=== PATIENT | female | born 1985 | race African-American/Black ===

== ENCOUNTER 2016-08-22 05:35 | Outpatient (CLI) | payer OTHER | END 2016-08-22 07:16 | disposition home or self-care (01) | LOC: FBPOP 05:35 | PROVIDERS: ATTEND Obstetrics & Gynecology | DX: O62.2 Other uterine inertia (principal); Z3A.39 39 weeks gestation of pregnancy | CPT/HCPCS: 59025; G0463; 99213 ==

== ENCOUNTER 2016-08-24 02:20 | Inpatient (IN) | payer OTHER ==
[2016-08-24] MEDS: LACTATED RINGERS 1,000 ML IV SCH ×3 (02:35→12:19)
[2016-08-24] MEDS ORDERED: OXYTOCIN 10 UNIT/ML 1 ML VIAL IM PRN (03:58)
[2016-08-24] MEDS ORDERED: METHYLERGONOVINE 0.2 MG/ML 1 ML AMP IM PRN (03:58)
[2016-08-24] MEDS ORDERED: TERBUTALINE 1 MG/ML VIAL SQ PRN (03:58)
[2016-08-24] MEDS ORDERED: CARBOPROST TROMETHAMINE 250 MCG/ML 1 ML AMP IM PRN (03:58)
[2016-08-24] MEDS ORDERED: LIDOCAINE 1% (PF) 10 MG/ML (30 ML SDV) SQ PRN (03:58)
--- NOTE | 2016-08-24 04:08 | P.HPOB ---
History of Present Illness H&P Date: 08/24/16 Chief Complaint: Contractions. This patient is a pleasant 31-year-old 7 para 3 female estimated date of confinement 08/28/2016 estimated gestational age 39 and 3 sevenths weeks gestation who presents to labor and delivery with complaints of contractions. Patient is not felt to be in labor, however wall being monitored she was noted to have a deceleration to the 80s and 90s for a prolonged period of time. Patient's care is per Dr. Cesar and appears to be uncomplicated. Review of Systems Constitutional: Denies chills, Denies fever Ears, nose, mouth and throat: Denies headache, Denies sore throat Cardiovascular: Denies chest pain, Denies shortness of breath Respiratory: Denies cough Gastrointestinal: Reports heartburn Genitourinary: Reports Menstruation: Reports amenorrhea Musculoskeletal: Denies myalgias Integumentary: Denies pruritus, Denies rash Neurological: Denies numbness, Denies weakness Psychiatric: Denies anxiety, Denies depression Endocrine: Denies fatigue, Denies weight change Past Medical History Additional Past Medical History / Comment(s): migraine History of Any Multi-Drug Resistant Organisms: None Reported Past Surgical History: Tonsillectomy Past Psychological History: No Psychological Hx Reported Smoking Status: Former smoker Past Alcohol Use History: None Reported Past Drug Use History: None Reported Medications and Allergies Allergies Allergy/AdvReac Type Severity Reaction Status Date / Time cephalexin [From Keflex] Allergy Severe Anaphylaxis Verified 08/24/16 02:39 Penicillins Allergy Severe Anaphylaxis Verified 08/24/16 02:39 Exam - Vital Signs Vital signs: Intake and Output 08/23/16 08/23/16 08/24/16 14:59 22:59 06:59 Other: Weight 102.058 kg Patient Weight 08/24/16 06:59 Weight 102.058 kg - OBG Physical Exam Abdomen: bowel sounds normal, no diffuse tenderness, no bruit present, no guarding noted, no hepatomegaly, no splenomegaly, no mass Vulva: both: normal Vagina: normal moisture, no discharge Cervix: Cervix is 3 cm dilated and thick. Uterus: enlarged (Fundal height is consistent with a term .) Results blood work shows she is A positive, rubella nonimmune, RPR is nonreactive, hepatitis B is negative, group B strep was negative Assessment and Plan (1) Third trimester Narrative/Plan: This is a pleasant 31-year-old 7 para 3 female 39-3/7 weeks gestation who presented to labor and delivery with complaints of contractions. Patient has had some slight cervical change from her previous exam but had a spontaneous deceleration and therefore is being admitted for delivery. Did proceed with AROM for clear fluid and a scalp electrode is placed. heart tones are reassuring at this time. Status: Acute
[2016-08-24 08:13] VITALS: BMI 35.2
[2016-08-24] MEDS ORDERED: OXYTOCIN 30 UNITS/500 ML NS 30 UNIT in SALINE 1 500ML.BAG IV SCH ×2 (08:15→16:15)
[2016-08-24 08:56] LABS: Basophils # (A) 0.1 k/uL (0-0.2); Basophils % (A) 1 %; CH 29.1; CHCM 32.8; Eosinophils # (A) 0.3 k/uL (0-0.7); Eosinophils % (A) 2 %; HCT 30.4 % (34.0-46.0); HDW 2.76; HGB 10.2 gm/dL (11.4-16.0); Luc # (Auto) 0.41; Luc % (Auto) 4; Lymphocytes # (A) 1.9 k/uL (1.0-4.8); Lymphocytes % (A) 16 %; MCH 29.8 pg (25.0-35.0); MCHC 33.5 g/dL (31.0-37.0); Mean Platelet Volume 7.6; Monocytes # (A) 0.5 k/uL (0-1.0); Monocytes % (A) 5 %; Neutrophils # (A) 8.4 k/uL (1.3-7.7); Neutrophils % (A) 73 %; RBC 3.42 m/uL (3.80-5.40); RDW 13.9 % (11.5-15.5); WBC 11.5 k/uL (3.8-10.6); WBC (Perox) 12.35
[2016-08-24] MEDS ORDERED: fentaNYL (PF) 50 MCG/ML 5 ML AMP ONE (13:44)
[2016-08-24] MEDS ORDERED: SODIUM CHLORIDE 0.9% 100 ML BAG ONE (13:44)
[2016-08-24] MEDS ORDERED: BUPIVACAINE (PF) 0.25% 30 ML VIAL ONE (13:44)
[2016-08-24] MEDS ORDERED: diphenhydrAMINE 50 MG/ML 1 ML VIAL IVP PRN ×2 (16:12)
[2016-08-24] MEDS ORDERED: ZOLPIDEM 5 MG TAB PO PRN (16:12)
[2016-08-24] MEDS ORDERED: SIMETHICONE 80 MG CHEWABLE PO PRN (16:12)
[2016-08-24] MEDS ORDERED: diphenhydrAMINE 50 MG CAP PO PRN (16:12)
[2016-08-24] MEDS ORDERED: MEASLES-MUMPS-RUBELLA VACC/PF 12,500 UNIT/0.5 ML VIAL SQ ONE (16:12)
[2016-08-24] MEDS ORDERED: WITCH HAZEL 1 EACH MED..PAD TOPICAL PRN (16:12)
[2016-08-24] MEDS ORDERED: BENZOCAINE/MENTHOL SPRAY 1 GM/SPRAY AEROSOL TOPICAL PRN (16:12)
[2016-08-24] MEDS ORDERED: LANOLIN CREAM 5 GM TUBE TOPICAL PRN (16:12)
[2016-08-24] MEDS ORDERED: Acetaminophen-Codeine 300-30mg TAB PO PRN ×2 (16:12)
[2016-08-24] MEDS ORDERED: ACETAMINOPHEN TAB 325 MG TAB PO PRN (16:12)
[2016-08-24] MEDS ORDERED: diphenhydrAMINE 25 MG CAP PO PRN (16:12)
[2016-08-24] MEDS ORDERED: HYDROCORTISONE 2.5% RECTAL CREAM 30 GM TUBE RECTAL PRN (16:12)
[2016-08-24] MEDS ORDERED: DIPH,PERTUS(ACELL)TETVAC-LF 0.5 ML VIAL IM ONE (16:14)
[2016-08-24] MEDS ORDERED: BUPIVACAINE (PF) 0.25% 25 ML, fentaNYL (PF) 200 MCG in SODIUM CHLORIDE 0.9% 71 ML EPIDURAL ONE (17:09)
[2016-08-24 18:15] VITALS: RESP 16
--- NOTE | 2016-08-24 19:37 | P.PROBDLV ---
Vaginal Delivery Note - . Vaginal Delivery Note: Patient progressed complete and pushing with spontaneous vaginal delivery of a viable female over an intact perineum. Falling deliver the head mouth nares were bulb suctioned a nuchal cord 1 was reduced without difficulty and interim posterior shoulders were delivered with gentle downward upper traction. Once baby was fully delivered mouth and nares were bulb suctioned and baby was placed on mother's abdomen where the umbilical cord was clamped and cut in usual fashion an nursery personnel was present to assume care. Placenta was then delivered intact and Pitocin was added to the IV. scores and weight are not on the chart at this time but both mother and baby appear stable.
[2016-08-25] MEDS: SENNOSIDES-DOCUSATE SODIUM 1 EACH TAB PO SCH ×2 (00:34→08:12)
[2016-08-25] MEDS: IBUPROFEN 600 MG TAB PO PRN ×2 (04:22→12:44)
--- NOTE | 2016-08-25 07:45 | P.DS ---
Providers Date of admission: 08/24/16 02:47 Expected date of discharge: 08/25/16 Attending physician: Keith Salvador Primary care physician: Keith Salvador Hospital Course: Gina is doing very well day 1. She is ambulating, voiding and she is tolerating her diet. She voices no complaint. Vital signs are stable and afebrile. Heart regular, lungs clear, tries without pain. Abdomen soft uterus is firm lochia is reported be light. Assessment day 1. Plan discharged home follow up with me in 6 weeks. Discharge instructions were thoroughly reviewed and discharge she is provided. She requests nothing to go home with for pain and is otherwise stable for discharge at this time. Patient Condition at Discharge: Good Plan - Discharge Summary Discharge Medication List Hxe-Fnss-Jlbez Acid [-U Capsule] 1 each PO DAILY #100 cap 01/04 [Rx] Follow up Appointment(s)/Referral(s): Keith Salvador DO [Primary Care Provider] - 1 Week Activity/Diet/Wound Care/Special Instructions: discharge instructions reviewed Discharge Disposition: HOME SELF-CARE
[2016-08-25 08:40] LABS: Basophils # (A) 0.1 k/uL (0-0.2); Basophils % (A) 1 %; CH 29.5; CHCM 32.8; Eosinophils # (A) 0.3 k/uL (0-0.7); Eosinophils % (A) 3 %; HCT 32.9 % (34.0-46.0); HDW 2.69; HGB 10.5 gm/dL (11.4-16.0); Luc % (Auto) 2; Lymphocytes # (A) 2.2 k/uL (1.0-4.8); Lymphocytes % (A) 19 %; MCH 28.8 pg (25.0-35.0); MCHC 31.9 g/dL (31.0-37.0); MCV 90.5 fL (80.0-100.0); Mean Platelet Volume 8.3; Monocytes # (A) 0.8 k/uL (0-1.0); Monocytes % (A) 7 %; Neutrophils # (A) 7.9 k/uL (1.3-7.7); Neutrophils % (A) 69 %; RBC 3.63 m/uL (3.80-5.40); WBC 11.4 k/uL (3.8-10.6); WBC (Perox) 12.43
[2016-08-25 15:21] VITALS: BP 108/73; PULSE 62; TEMP 98.3
== END 2016-08-25 16:30 | disposition home or self-care (01) | DRG 775 ==
LOC: FBPOP 02:20 → 4FBP 02:47
PROVIDERS: ADMIT Obstetrics & Gynecology; ATTEND Obstetrics & Gynecology
PROC: 10E0XZZ Delivery of Products of Conception, External Approach (ICD-10-PCS; principal; 2016-08-24)
PROC: 00HU33Z Insertion of Infusion Device into Spinal Canal, Percutaneous Approach (ICD-10-PCS; 2016-08-24)
PROC: 3E0R3CZ (ICD-10-PCS; 2016-08-24)
PROC: 10907ZC Drainage of Amniotic Fluid, Therapeutic from Products of Conception, Via Natural or Artificial Opening (ICD-10-PCS; 2016-08-24)
PROC: 3E033VJ Introduction of Other Hormone into Peripheral Vein, Percutaneous Approach (ICD-10-PCS; 2016-08-24)
PROC: 3E0134Z Introduction of Serum, Toxoid and Vaccine into Subcutaneous Tissue, Percutaneous Approach (ICD-10-PCS; 2016-08-24)
PROC: 3E0234Z Introduction of Serum, Toxoid and Vaccine into Muscle, Percutaneous Approach (ICD-10-PCS; 2016-08-24)
DX: O69.81X0 Labor and delivery complicated by cord around neck, without compression, not applicable or unspecified (principal); G43.909 Migraine, unspecified, not intractable, without status migrainosus; Z87.891 Personal history of nicotine dependence; Z37.0 Single live birth; Z3A.39 39 weeks gestation of pregnancy; Z79.899 Other long term (current) drug therapy; Z23 Encounter for immunization
CPT/HCPCS: 85025; 88307; 90707; 99213

== ENCOUNTER 2018-03-05 01:00 | Inpatient (IN) | payer OTHER ==
[2018-03-05] MEDS ORDERED: OXYTOCIN 10 UNIT/ML 1 ML VIAL IM PRN (04:44)
[2018-03-05] MEDS ORDERED: TERBUTALINE 1 MG/ML VIAL SQ PRN (04:44)
[2018-03-05] MEDS ORDERED: LIDOCAINE 1% (PF) 10 MG/ML (30 ML SDV) SQ PRN (04:44)
[2018-03-05] MEDS ORDERED: METHYLERGONOVINE 0.2 MG/ML 1 ML AMP IM PRN (04:44)
[2018-03-05] MEDS ORDERED: CARBOPROST TROMETHAMINE 250 MCG/ML 1 ML AMP IM PRN (04:44)
[2018-03-05] MEDS ORDERED: OXYTOCIN 20 UNITS/1000 ML NS 1,000 ML IV SCH ×2 (04:45→07:49)
[2018-03-05] MEDS ORDERED: BUTORPHANOL 1 MG/ML 1 ML VIAL IV PRN (04:47)
[2018-03-05] MEDS ORDERED: LACTATED RINGERS 1,000 ML IV SCH (05:45)
[2018-03-05 05:58] LABS: Basophils # (A) 0.1 k/uL (0-0.2); Basophils % (A) 1 %; Eosinophils # (A) 0.3 k/uL (0-0.7); Eosinophils % (A) 2 %; HCT 34.1 % (34.0-46.0); HGB 11.6 gm/dL (11.4-16.0); Lymphocytes # (A) 2.6 k/uL (1.0-4.8); Lymphocytes % (A) 20 %; MCH 29.9 pg (25.0-35.0); MCHC 33.9 g/dL (31.0-37.0); MCV 88.3 fL (80.0-100.0); Mean Platelet Volume 7.5; Monocytes # (A) 0.7 k/uL (0-1.0); Monocytes % (A) 5 %; Neutrophils # (A) 9.3 k/uL (1.3-7.7); Neutrophils % (A) 70 %; Platelet Count 261 k/uL (150-450); RBC 3.86 m/uL (3.80-5.40); RDW 14.2 % (11.5-15.5); WBC 13.1 k/uL (3.8-10.6)
--- NOTE | 2018-03-05 07:27 | P.HPOB ---
History of Present Illness H&P Date: 03/05/18 Chief Complaint: Contractions This is a 32-year-old female 8 para 4 at 39-2/7 weeks with an estimated date of confinement of 03/10/2018, who presents to labor and delivery with complaints of contractions that been irregular since yesterday but due to her history of fast labor she decided to come in. She is scheduled for induction this morning. Upon arrival to triage her contractions are approximately every 10 minutes and she is noted to be 5 cm and very high. She is not that uncomfortable on admission. care is with Dr. Salvador. labs: Hepatitis B surface antigen-negative RPR-nonreactive Rubella-immune Blood type-A+ Antibody screen-negative HIV-nonreactive Hemoglobin-12 Toxoplasma screen-negative One hour Glucola-96 Group B streptococcus-negative Obstetrical history: . History of 4 vaginal deliveries. History of 3 miscarriages. Review of Systems Constitutional: Denies chills, Denies fever Eyes: denies blurred vision, denies pain Ears, nose, mouth and throat: Denies headache, Denies sore throat Cardiovascular: Denies chest pain, Denies shortness of breath Respiratory: Denies cough Gastrointestinal: Reports abdominal pain Genitourinary: Reports pelvic pain, Reports Musculoskeletal: Reports low back pain Integumentary: Denies pruritus, Denies rash Neurological: Denies numbness, Denies weakness Psychiatric: Denies anxiety, Denies depression Past Medical History Additional Past Medical History / Comment(s): migraine History of Any Multi-Drug Resistant Organisms: None Reported Past Surgical History: Tonsillectomy Past Anesthesia/Blood Transfusion Reactions: No Reported Reaction Past Psychological History: No Psychological Hx Reported Smoking Status: Former smoker Past Alcohol Use History: None Reported Past Drug Use History: None Reported - Past Family History Father Family Medical History: No Reported History Medications and Allergies Home Medications Medication Instructions Recorded Confirmed Type Tlm-Rbws-Cafxd Acid 1 each PO DAILY #100 cap 01/05/16 03/05/18 Rx [-U Capsule (formulary)] Allergies Allergy/AdvReac Type Severity Reaction Status Date / Time cephalexin [From Keflex] Allergy Severe Anaphylaxis Verified 03/05/18 05:32 Penicillins Allergy Severe Anaphylaxis Verified 03/05/18 05:32 ciprofloxacin [From Cipro] Allergy Anaphylaxis Verified 03/05/18 05:32 Exam Osteopathic Statement: *. No significant issues noted on an osteopathic structural exam other than those noted in the History and Physical/Consult. Intake and Output 03/04/18 03/05/18 03/05/18 22:59 06:59 14:59 Other: # Voids 2 Weight 105.233 kg HEENT: Within normal limits Heart: Regular rate and rhythm Lungs: Clear to auscultation bilaterally Abdomen: Cervix: Initially in triage is 5 cm/thick/high. heart tones: Reactive Contractions: Approximately every 10 minutes Extremities: Negative Homans Results Result Diagrams: 03/05/18 03:40 Abnormal Lab Results - Last 24 Hours (Table) 03/05/18 Range/Units 03:40 WBC 13.1 H (3.8-10.6) k/uL Neutrophils # 9.3 H (1.3-7.7) k/uL Assessment and Plan (1) 39 weeks gestation of Current Visit: Yes Status: Acute Code(s): Z3A.39 - 39 WEEKS GESTATION OF SNOMED Code(s): 92924708 Plan: Admission for early labor. Expectant management.
--- NOTE | 2018-03-05 07:30 | P.PROBDLV ---
Vaginal Delivery Note - . Vaginal Delivery Note: I was called with a report that the patient is now 9 cm and still saul irregularly. Upon my arrival, she is noted to be 9-1/2 cm with a bulging bag. Artificial rupture membranes is carried out with clear fluid noted. Shortly after rupture of membranes, she felt the urge to push. She pushed for a couple pushes and infant's head came to a crown. With one further push, the infant delivered across the perineum followed by the anterior shoulder. Nuchal cord times one was reduced around the body with delivery area and infant was placed on mother's abdomen. Cord was clamped and cut and nose and mouth were bulb suctioned. Risk I was noted immediately. A viable female was noted with scores of 8 at 1 minute and 9 at 5 minutes. Infant weight is pending at this time. Placenta delivered shortly thereafter, intact, with a three-vessel cord. Uterus contracted fairly well after oxytocin was given and uterine massage was carried out. A gloved hand was placed and there was a small amount of membrane was separately pulled out and uterus firmed up well. Inspection of the perineum revealed a few small abrasions but no active bleeding. Estimated blood loss is approximately 150 mL's. Both mother and infant are in stable condition.
[2018-03-05] MEDS ORDERED: diphenhydrAMINE 25 MG CAP PO PRN (07:49)
[2018-03-05] MEDS ORDERED: SIMETHICONE 80 MG CHEWABLE PO PRN (07:49)
[2018-03-05] MEDS ORDERED: BENZOCAINE/MENTHOL SPRAY 1 GM/SPRAY AEROSOL TOPICAL PRN (07:49)
[2018-03-05] MEDS ORDERED: diphenhydrAMINE 50 MG CAP PO PRN (07:49)
[2018-03-05] MEDS ORDERED: diphenhydrAMINE 50 MG/ML 1 ML VIAL IVP PRN ×2 (07:49)
[2018-03-05] MEDS ORDERED: WITCH HAZEL 1 EACH MED..PAD TOPICAL PRN (07:49)
[2018-03-05] MEDS ORDERED: HYDROCORTISONE 2.5% RECTAL CREAM 30 GM TUBE RECTAL PRN (07:49)
[2018-03-05] MEDS ORDERED: LANOLIN CREAM 5 GM TUBE TOPICAL PRN (07:49)
[2018-03-05] MEDS ORDERED: ACETAMINOPHEN TAB 325 MG TAB PO PRN (07:49)
[2018-03-05] MEDS ORDERED: ZOLPIDEM 5 MG TAB PO PRN (07:49)
[2018-03-05] MEDS: SENNOSIDES-DOCUSATE SODIUM 1 EACH TAB PO SCH ×2 (08:29→20:20)
[2018-03-05] MEDS: IBUPROFEN 600 MG TAB PO PRN ×2 (08:51→19:17)
[2018-03-05 20:18] VITALS: RESP 16
[2018-03-06 05:41] LABS: Basophils % (A) 0 %; Eosinophils # (A) 0.4 k/uL (0-0.7); Eosinophils % (A) 3 %; HCT 31.3 % (34.0-46.0); HGB 10.3 gm/dL (11.4-16.0); Lymphocytes # (A) 2.9 k/uL (1.0-4.8); Lymphocytes % (A) 22 %; MCH 29.1 pg (25.0-35.0); MCHC 32.9 g/dL (31.0-37.0); MCV 88.6 fL (80.0-100.0); Mean Platelet Volume 7.5; Monocytes # (A) 0.7 k/uL (0-1.0); Monocytes % (A) 6 %; Neutrophils % (A) 68 %; Platelet Count 255 k/uL (150-450); RBC 3.53 m/uL (3.80-5.40); RDW 14.1 % (11.5-15.5); WBC 13.3 k/uL (3.8-10.6)
[2018-03-06 08:34] VITALS: BP 107/68; PULSE 69; TEMP 98
[2018-03-06] MEDS: SENNOSIDES-DOCUSATE SODIUM 1 EACH TAB PO SCH (10:27)
--- NOTE | 2018-03-06 11:07 | P.DS ---
Providers Date of admission: 03/05/18 01:00 Expected date of discharge: 03/06/18 Attending physician: Keith Salvador Primary care physician: Keith Salvador [facility] Hospital Course: Gina is doing very well day 1. She is ambulating, voiding, and she is tolerating her diet. She voices no complaints. Vital signs are stable and afebrile. Heart regular, lungs clear, extremities without pain. Abdomen soft uterus is firm below the umbilicus and lochia is reported be light. Assessment post day 1. Plan discharged home follow up with me in 6 weeks. Discharge instructions thoroughly reviewed. All questions are answered for her prior to her discharge. Patient Condition at Discharge: Good Plan - Discharge Summary New Discharge Prescriptions: No Action Asu-Zigv-Gbmyi Acid [-U Capsule (formulary)] 1 each PO DAILY #100 cap Discharge Medication List Gct-Knys-Qjxaa Acid [-U Capsule (formulary)] 1 each PO DAILY # 100 cap 01/05/16 [Rx] Follow up Appointment(s)/Referral(s): Keith Salvador DO [Primary Care Provider] - 6 Weeks Activity/Diet/Wound Care/Special Instructions: No heavy lifting, limit stairs and driving and pelvic rest. If any high temperatures, heavy bleeding, or severe pain call my office Discharge Disposition: HOME SELF-CARE
== END 2018-03-06 11:15 | disposition home or self-care (01) | DRG 767 ==
LOC: 4FBP 01:00
PROVIDERS: ADMIT Obstetrics & Gynecology; ATTEND Obstetrics & Gynecology
PROC: 10D17Z9 Manual Extraction of Products of Conception, Retained, Via Natural or Artificial Opening (ICD-10-PCS; principal; 2018-03-05)
PROC: 10907ZC Drainage of Amniotic Fluid, Therapeutic from Products of Conception, Via Natural or Artificial Opening (ICD-10-PCS; principal; 2018-03-05)
PROC: 10E0XZZ Delivery of Products of Conception, External Approach (ICD-10-PCS; principal; 2018-03-05)
DX: O69.81X0 Labor and delivery complicated by cord around neck, without compression, not applicable or unspecified (principal); Z37.0 Single live birth; Z3A.39 39 weeks gestation of pregnancy; Z87.891 Personal history of nicotine dependence; O73.1 Retained portions of placenta and membranes, without hemorrhage
CPT/HCPCS: 85025

== ENCOUNTER 2018-05-15 15:16 | Emergency (ER) | payer OTHER ==
[2018-05-15 15:24] VITALS: RESP 18
[2018-05-15] MEDS ORDERED: diphenhydrAMINE 50 MG/ML 1 ML VIAL IVP STA (15:30)
[2018-05-15] MEDS ORDERED: METOCLOPRAMIDE 5 MG/ML 2 ML VIAL IVP STA (15:30)
[2018-05-15] MEDS ORDERED: KETOROLAC 30 MG/ML 1 ML VIAL IVP STA (15:30)
[2018-05-15] MEDS ORDERED: SODIUM CHLORIDE 0.9% 1,000 ML IV ONE (15:30)
[2018-05-15] MEDS ORDERED: SUMAtriptan SUCCINATE 6 MG/0.5 ML VIAL SQ STA (15:31)
--- NOTE | 2018-05-15 15:37 | ED ---
Headache HPI - General Chief Complaint: Headache Stated Complaint: migraine Time Seen by Provider: 05/15/18 15:25 Source: patient, RN notes reviewed Mode of arrival: wheelchair Limitations: no limitations - History of Present Illness Initial Comments: this is a 33 -year-old female presents emergency Department chief complaint migraine headache. She has a long history migraine headaches. She states is typical headache for her. She is out of her Imitrex and states that she tried lwsl-ibu-lvqakkk medications with no relief. Patient states it's in the left occipital region. She does admit to some nausea vomiting. She also has photophobia. Patient denies any focal weakness, dizziness, fever, chills, neck pain, neck stiffness or any other associated symptoms. - Related Data Home Medications Medication Instructions Recorded Confirmed Acetaminophen Tab [Tylenol Tab] 1,000 mg PO Q6H PRN 05/15/18 05/15/18 Previous Rx's Medication Instructions Recorded SUMAtriptan SUCCINATE [Imitrex] 25 mg PO ONCE PRN #10 tablet 05/15/18 Allergies Allergy/AdvReac Type Severity Reaction Status Date / Time cephalexin [From Keflex] Allergy Severe Anaphylaxis Verified 05/15/18 15:43 Penicillins Allergy Severe Anaphylaxis Verified 05/15/18 15:43 ciprofloxacin [From Cipro] Allergy Anaphylaxis Verified 05/15/18 15:43 Review of Systems ROS Statement: Those systems with pertinent positive or pertinent negative responses have been documented in the HPI. ROS Other: All systems not noted in ROS Statement are negative. Past Medical History Additional Past Medical History / Comment(s): migraine History of Any Multi-Drug Resistant Organisms: None Reported Past Surgical History: Tonsillectomy Past Anesthesia/Blood Transfusion Reactions: No Reported Reaction Past Psychological History: No Psychological Hx Reported Smoking Status: Current every day smoker Past Alcohol Use History: None Reported Past Drug Use History: None Reported - Past Family History Father Family Medical History: No Reported History General Exam Limitations: no limitations General appearance: alert, in no apparent distress Head exam: Present: atraumatic, normocephalic, normal inspection Eye exam: Present: normal appearance, PERRL, EOMI. Absent: scleral icterus, conjunctival injection, periorbital swelling ENT exam: Present: normal exam, normal oropharynx, mucous membranes moist, TM's normal bilaterally Neck exam: Present: normal inspection, full ROM. Absent: tenderness, meningismus, lymphadenopathy Respiratory exam: Present: normal lung sounds bilaterally. Absent: respiratory distress, wheezes, rales, rhonchi, stridor Cardiovascular Exam: Present: regular rate, normal rhythm, normal heart sounds. Absent: systolic murmur, diastolic murmur, rubs, gallop, clicks GI/Abdominal exam: Present: soft, normal bowel sounds. Absent: distended, tenderness, guarding, rebound, rigid Extremities exam: Present: normal inspection, full ROM, normal capillary refill. Absent: tenderness, pedal edema, joint swelling, calf tenderness Neurological exam: Present: alert, oriented X3, CN II-XII intact, reflexes normal. Absent: motor sensory deficit Psychiatric exam: Present: normal affect, normal mood Skin exam: Present: warm, dry, intact, normal color. Absent: rash Course Vital Signs 05/15/18 15:22 Temperature 97.7 F Pulse Rate 70 Respiratory 18 Rate Blood Pressure 117/68 O2 Sat by Pulse 99 Oximetry - Reevaluation(s) Reevaluation #1: 05/15/18 16:33 Patient states she is symptom-free at this time. Medical Decision Making - Medical Decision Making 33-year-old female presented emergency department for migraine headache. Patient was given Reglan, Toradol and Benadryl with IV fluids and states that she feels better. Return parameters discussed. Disposition Clinical Impression: Migraine Disposition: HOME SELF-CARE Condition: Stable Instructions: Acute Headache (ED) Additional Instructions: Please return to the Emergency Department if symptoms worsen or any other concerns. Prescriptions: SUMAtriptan SUCCINATE [Imitrex] 25 mg PO ONCE PRN #10 tablet PRN Reason: Headache Is patient prescribed a controlled substance at d/c from ED?: No Referrals: Jesús Guillory MD [Primary Care Provider] - 1-2 days Time of Disposition: 16:36
[2018-05-15 16:49] VITALS: BP 133/67; PULSE 50; TEMP 98.1
== END 2018-05-15 16:49 | disposition home or self-care (01) ==
LOC: EC 15:16
DX: G43.909 Migraine, unspecified, not intractable, without status migrainosus (principal); F17.200 Nicotine dependence, unspecified, uncomplicated; Z88.0 Allergy status to penicillin; Z88.1 Allergy status to other antibiotic agents
CPT/HCPCS: 99283; 96374; 96375 ×2; 96361; 96372; J3030; J1200; J2765; J1885

== ENCOUNTER 2019-07-24 08:00 | Inpatient (IN) | payer OTHER ==
[2019-08-21 11:07] VITALS: BMI 36.8
--- NOTE | 2019-08-24 16:45 | P.HPOB ---
History of Present Illness H&P Date: 08/24/19 Chief Complaint: Intrauterine with twins: Primary with tubal Gina is a 34-year-old female who has twin gestation with a be is not in vertex position she is scheduled therefore for a primary section with tubal. Risks/benefits/alternatives to this procedure were discussed with the patient in detail and all questions were answered for her prior to proceeding to the operative room. She did see maternal medicine earlier in the for evaluation and ultrasounds. She has been followed closely with nonstress tests twice weekly since approximately 34 weeks. Risks/benefits/alternatives to a primary section with tubal were discussed with the patient in detail and all questions have been answered for the patient area her Precis course generally speaking otherwise has been unremarkable. Past Medical History Additional Past Medical History / Comment(s): migraines, "low iron" History of Any Multi-Drug Resistant Organisms: None Reported Past Surgical History: Tonsillectomy Additional Past Surgical History / Comment(s): oral surgery Past Anesthesia/Blood Transfusion Reactions: Motion Sickness Additional Past Anesthesia/Blood Transfusion Reaction / Comment(s): adopted- limited family hx Smoking Status: Former smoker - Past Family History Father Family Medical History: Unable to Obtain Additional Family Medical History / Comment(s): adopted Medications and Allergies Home Medications Medication Instructions Recorded Confirmed Type Ferrous Sulfate [Slow Fe] 142 mg PO DAILY 07/24/19 08/21/19 History Pnv,Calcium 72/Iron/Folic Acid 1 each PO DAILY 07/24/19 08/21/19 History [ Plus Tablet] Allergies Allergy/AdvReac Type Severity Reaction Status Date / Time cephalexin [From Keflex] Allergy Severe Anaphylaxis Verified 08/21/19 10:59 Penicillins Allergy Severe Anaphylaxis Verified 08/21/19 10:59 ciprofloxacin [From Cipro] Allergy Anaphylaxis Verified 08/21/19 10:59 Exam Osteopathic Statement: *. No significant issues noted on an osteopathic structural exam other than those noted in the History and Physical/Consult. - OBG Physical Exam Breast: both: normal (no masses) Abdomen: bowel sounds normal, no diffuse tenderness, no bruit present, no guarding noted, no hepatomegaly, no splenomegaly, no mass Vulva: both: normal Vagina: normal moisture, no discharge Cervix: no lesion, no discharge Uterus: normal size, normal contour Adnexa: both: normal Anus/Rectum: normal perianal skin, no rectal mass, no hemorrhoids, heme negative
[2019-08-25] MEDS ORDERED: CLINDAMYCIN 600 MG in DEXTROSE 5% IN WATER 50 ML IVPB STA ×2 (06:47)
[2019-08-25] MEDS ORDERED: CITRIC ACID-SODIUM CITRATE 15 ML CUP PO ONE (06:47)
[2019-08-25] MEDS: LACTATED RINGERS 1,000 ML IV SCH ×4 (06:52→20:18)
[2019-08-25 07:03] LABS: Anisocytosis Slight; Basophils # (A) 0.1 k/uL (0-0.2); Basophils % (A) 1 %; Eosinophils # (A) 0.2 k/uL (0-0.7); Eosinophils % (A) 2 %; HCT 32.3 % (34.0-46.0); HGB 10.5 gm/dL (11.4-16.0); Lymphocytes % (A) 14 %; MCH 27.6 pg (25.0-35.0); MCHC 32.4 g/dL (31.0-37.0); MCV 85.2 fL (80.0-100.0); Mean Platelet Volume 8.7; Monocytes # (A) 0.7 k/uL (0-1.0); Monocytes % (A) 5 %; Neutrophils # (A) 10.6 k/uL (1.3-7.7); Neutrophils % (A) 75 %; Platelet Count 277 k/uL (150-450); RBC 3.79 m/uL (3.80-5.40); RDW 16.3 % (11.5-15.5)
[2019-08-25] MEDS ORDERED: NALBUPHINE 10 MG/ML (1 ML AMP) ONE (07:58)
[2019-08-25] MEDS ORDERED: ONDANSETRON 4 MG/2 ML VIAL ONE (07:58)
[2019-08-25] MEDS ORDERED: OXYTOCIN 10 UNIT/ML 1 ML VIAL ONE (07:58)
[2019-08-25] MEDS ORDERED: MORPHINE SULFATE (PF) 0.3 MG/0.3 ML SYR ONE (07:58)
[2019-08-25] MEDS ORDERED: ePHEDrine SULFATE/0.9% NACL/PF 50 MG/5 ML SYRINGE IV ONE (07:58)
[2019-08-25] MEDS ORDERED: KETOROLAC 30 MG/ML 1 ML VIAL ONE (07:58)
[2019-08-25] MEDS ORDERED: diphenhydrAMINE 50 MG/ML 1 ML VIAL IVP PRN ×2 (08:38)
[2019-08-25] MEDS ORDERED: SIMETHICONE 80 MG CHEWABLE PO PRN (08:38)
[2019-08-25] MEDS ORDERED: ONDANSETRON 4 MG/2 ML VIAL IVP PRN (08:38)
[2019-08-25] MEDS ORDERED: diphenhydrAMINE 50 MG CAP PO PRN (08:38)
[2019-08-25] MEDS ORDERED: NALOXONE 0.4 MG/ML 1 ML VIAL IV PRN (08:38)
[2019-08-25] MEDS ORDERED: ACETAMINOPHEN TAB 325 MG TAB PO PRN (08:38)
[2019-08-25] MEDS ORDERED: METOCLOPRAMIDE 5 MG/ML 2 ML VIAL IVP PRN (08:38)
[2019-08-25] MEDS ORDERED: ZOLPIDEM 5 MG TAB PO PRN (08:38)
[2019-08-25] MEDS ORDERED: diphenhydrAMINE 25 MG CAP PO PRN (08:38)
--- NOTE | 2019-08-25 08:43 | P.OP ---
Date of Procedure: 08/25/19 Preoperative Diagnosis: Intrauterine at term: Twins: Baby A breech baby B transverse : family planning Postoperative Diagnosis: Same Procedure(s) Performed: Primary low transverse section with bilateral tubal occlusion Lucrecia franklin Anesthesia: spinal Surgeon: Keith Salvador Incident Manager #1: Amador Bryson Estimated Blood Loss (ml): 600 IV fluids (ml): 1,000 Urine output (ml): 300 Pathology: other (Placenta) Condition: stable Disposition: floor Operative Findings: Twin babies baby A boy scores 9 and 9 at one and 5 minutes and weight 5 lbs. 10 oz. baby B girl Apgars 9 and 9 with a weight of 5 lbs. 8 oz. nursery personnel was present for delivery Description of Procedure: Patient was taken to the operating suite where a spinal anesthetic was found be adequate. She was prepped and draped in the normal sterile fashion and placed in dorsal supine position with leftward tilt. Initially a Pfannenstiel skin incision was made and this incision was then carried through to the underlying layer of the fascia with the second knife. Fascia was then nicked in the midline and this opening was extended laterally with Tabor scissors. Superior and inferior aspect of this incision were then bluntly and sharply dissected off of the rectus muscles and rectus muscles were divided and blunt dissection through the peritoneum was done. This opening was then extended superiorly and inferiorly with good visualization of both bowel bladder. Bladder blade was then placed and bladder flap identified. It was entered sharply with Metzenbaum scissors and carried across face the uterus. It was then bluntly dissected out of the operative field. Knife was then used to incise uterus this opening was fully developed with hemostat and then extended bluntly. Baby A was noted to be in breech presentation and was delivered without difficulty with just gentle traction. Once baby was delivered mouth nares were bulb suctioned umbilical cord was then clamped and cut in the usual fashion an nursery personnel assume care. Baby B was then brought down into the incision area and was essentially vertex at that point and following artificial rupture membranes head was easily delivered followed by the remainder the baby mouth nares again bulb suctioned and the umbilical cord was then clamped cut usual fashion with nursery personnel again present to assume care. Placenta was then delivered intact and Pitocin was added to the IV. Uterus was then exteriorized cleared of clots and debris and closed in 1 layer with 0 Vicryl suture. Once excellent hemostasis was obtained Filshie clip is were applied 2 cm from uterine cornu bilaterally. No bleeding is noted therefore blood and debris was suctioned from the posterior cul-de-sac and the uterus was reinserted into the abdomen. Peritoneal layer was then delineated with hemostats and closed with 0 Vicryl suture. Fascial layer was closed with 0 Vicryl suture. One layer of 3-0 Vicryl was placed in the deep subcuticular tissues to reapproximate the skin and close space. Skin was then closed with 3-0 Vicryl subcuticularly. Sponge, lap, needle counts were all correct 2. Patient was then taken to the recovery room in stable and satisfactory condition.
[2019-08-25] MEDS: KETOROLAC 30 MG/ML 1 ML VIAL IVP PRN ×2 (15:16→21:29)
[2019-08-25] MEDS: SENNOSIDES-DOCUSATE SODIUM 1 EACH TAB PO SCH (21:29)
[2019-08-26] MEDS: LACTATED RINGERS 1,000 ML IV SCH ×2 (00:46)
[2019-08-26] MEDS: KETOROLAC 30 MG/ML 1 ML VIAL IVP PRN (04:08)
[2019-08-26 06:22] LABS: Anisocytosis Slight; Basophils # (A) 0.1 k/uL (0-0.2); Basophils % (A) 1 %; Eosinophils # (A) 0.3 k/uL (0-0.7); Eosinophils % (A) 2 %; HCT 31.4 % (34.0-46.0); Lymphocytes # (A) 1.8 k/uL (1.0-4.8); Lymphocytes % (A) 13 %; MCH 27.3 pg (25.0-35.0); MCV 85.3 fL (80.0-100.0); Mean Platelet Volume 8.9; Monocytes # (A) 0.7 k/uL (0-1.0); Monocytes % (A) 5 %; Neutrophils # (A) 10.6 k/uL (1.3-7.7); Neutrophils % (A) 77 %; Platelet Count 253 k/uL (150-450); RBC 3.68 m/uL (3.80-5.40); RDW 16.5 % (11.5-15.5); WBC 13.8 k/uL (3.8-10.6)
[2019-08-26] MEDS: SENNOSIDES-DOCUSATE SODIUM 1 EACH TAB PO SCH ×2 (08:17→19:50)
[2019-08-26] MEDS: HYDROcodone/APAP 7.5-325MG 1 EACH TAB PO PRN ×3 (08:18→20:58)
--- NOTE | 2019-08-26 08:50 | P.PNOBGPC ---
Subjective - Subjective Principal diagnosis: Postop day 1 Interval history: Gina is doing very well postop day 1. She is ambulating, voiding and tolerating her diet. She voices no complaints other than pain. Her vital signs are stable and she is afebrile. On physical exam vital signs are stable and afebrile. Heart regular, lungs clear, extremities without pain. Abdomen soft uterus is firm and lochia is reported to be light. Assessment postop day 1. Plan continue current care. Patient reports: Reports appetite normal, Reports voiding normally, Reports pain well controlled, Reports ambulating normally : doing well Objective - Vital Signs Latest vital signs: Vital Signs Temp Pulse Resp BP Pulse Ox 08/26/19 04:00 98.4 F 60 16 92/52 99 08/26/19 00:00 97.7 F 60 16 97/50 98 08/25/19 20:00 97.6 F 58 L 16 101/68 100 08/25/19 14:58 96.3 F L 53 L 18 112/72 100 08/25/19 10:47 94.8 F L 47 L 18 114/69 100 08/25/19 10:17 56 L 18 122/56 100 08/25/19 09:47 95.4 F L 55 L 18 112/67 100 08/25/19 09:32 65 18 101/54 08/25/19 09:17 66 18 115/59 100 08/25/19 09:02 71 18 116/59 100 Intake and Output 08/25/19 08/26/19 08/26/19 22:59 06:59 14:59 Intake Total 1290 Output Total 350 850 Balance 940 -850 Intake: Intake, IV Titration 1050 Amount Clindamycin 600 mg In 50 Dextrose 5% in Water 50 ml @ 50 mls/hr IVPB ONCE STA Rx#:[id number] Lactated Ringers 1,000 ml 1000 @ 125 mls/hr IV .Q8H [facility] Rx#:[id number] Oral 240 Output: Urine 350 850 Uretheral (Solorzano) 100 Other: Voiding Method Indwelling Catheter # Voids 1 1 - Exam Lungs: bilateral: normal Chest: Normal S1, Normal S2 Extremities: Present: normal Abdomen: Present: normal appearance, soft. Absent: distention, tenderness Incision: Present: normal, dry, intact Uterus: Present: normal, firm - Labs Labs: Abnormal Lab Results - Last 24 Hours (Table) 08/26/19 Range/Units 06:00 WBC 13.8 H (3.8-10.6) k/uL RBC 3.68 L (3.80-5.40) m/uL Hgb 10.0 L (11.4-16.0) gm/dL Hct 31.4 L (34.0-46.0) % RDW 16.5 H (11.5-15.5) % Neutrophils # 10.6 H (1.3-7.7) k/uL
--- NOTE | 2019-08-26 09:56 | P.PN ---
Progress Note - Text Progress Note Date: 08/26/19 Patient was seen at bedside at 645 AM. Patient is postop day 1 from with Duramorph spinal. VAS score is 3/10. Patient has mild side effects in the form of itching and nausea. She denies headaches. Lower extremity sensation and motor function is intact. Patient has ambulated.
[2019-08-26] MEDS: IBUPROFEN 600 MG TAB PO PRN ×2 (10:48→18:02)
[2019-08-26] MEDS ORDERED: HYDROcodone/APAP 10-325MG 1 EACH TAB PO PRN (19:00)
[2019-08-27 00:01] VITALS: RESP 16
[2019-08-27] MEDS: IBUPROFEN 600 MG TAB PO PRN ×3 (00:06→12:22)
[2019-08-27] MEDS: HYDROcodone/APAP 7.5-325MG 1 EACH TAB PO PRN (03:00)
--- NOTE | 2019-08-27 09:01 | P.DS ---
Providers Date of admission: 08/25/19 06:11 Expected date of discharge: 08/27/19 Attending physician: Keith Salvador Primary care physician: Stated None Hospital Course: Gina is doing very well postop day 2. She is ambulating, voiding and tolerating her diet. Her pain is well-controlled at this time. She will discharged to home later today. Vital signs are stable and afebrile. Heart regular, lungs clear, extremities without pain. Abdomen is soft uterus is firm and incision is clean dry and intact. Assessment postop day 2. Plan discharged to home follow up with me in 1 week. Prescription for Mesick and Motrin are provided and all questions were answered and discharge instructions thoroughly reviewed. Patient Condition at Discharge: Good Plan - Discharge Summary Discharge Rx Participant: Yes New Discharge Prescriptions: New Ibuprofen [Motrin] 600 mg PO Q6HR PRN #30 tab PRN Reason: Pain HYDROcodone/APAP 5-325MG [Mesick 5-325] 1 tab PO Q4HR PRN #30 tab PRN Reason: Pain No Action Pnv,Calcium 72/Iron/Folic Acid [ Plus Tablet] 1 each PO DAILY Ferrous Sulfate [Slow Fe] 142 mg PO DAILY Discharge Medication List Ferrous Sulfate [Slow Fe] 142 mg PO DAILY 07/24/19 [History] Pnv,Calcium 72/Iron/Folic Acid [ Plus Tablet] 1 each PO DAILY 07/24/19 [History] HYDROcodone/APAP 5-325MG [Mesick 5-325] 1 tab PO Q4HR PRN #30 tab 08/27/19 [Rx] Ibuprofen [Motrin] 600 mg PO Q6HR PRN #30 tab 08/27/19 [Rx] Follow up Appointment(s)/Referral(s): Keith Salvador DO [Doctor of Osteopathic Medicine] - 1 Week Activity/Diet/Wound Care/Special Instructions: No heavy lifting, limit stairs and driving, and pelvic rest. If any high temperatures, heavy bleeding, or severe pain call my office Discharge Disposition: HOME SELF-CARE
[2019-08-27] MEDS: SENNOSIDES-DOCUSATE SODIUM 1 EACH TAB PO SCH (09:02)
[2019-08-27 09:05] VITALS: BP 136/71; PULSE 65; TEMP 97.7
== END 2019-08-27 13:59 | disposition home or self-care (01) | DRG 785 ==
LOC: 4FBP 08-25 06:11
PROVIDERS: ADMIT Obstetrics & Gynecology; ATTEND Obstetrics & Gynecology
PROC: 0UL70CZ Occlusion of Bilateral Fallopian Tubes with Extraluminal Device, Open Approach (ICD-10-PCS; 2019-08-25)
PROC: 10D00Z1 Extraction of Products of Conception, Low, Open Approach (ICD-10-PCS; principal; 2019-08-25 08:00)
DX: O32.1XX2 Maternal care for breech presentation, fetus 2 (principal); O32.2XX1 Maternal care for transverse and oblique lie, fetus 1; O30.033 Twin pregnancy, monochorionic/diamniotic, third trimester; Z3A.37 37 weeks gestation of pregnancy; Z37.2 Twins, both liveborn; Z87.891 Personal history of nicotine dependence; E61.1 Iron deficiency; G43.909 Migraine, unspecified, not intractable, without status migrainosus
CPT/HCPCS: 85025; 86850; 86900; 86901; 88307

== ENCOUNTER 2019-07-24 18:38 | Outpatient (CLI) | payer OTHER ==
[2019-07-24] MEDS ORDERED: BETAMET ACET-BETAMETH SOD PHOS 6 MG/ML VIAL IM SCH (19:00)
[2019-07-24] MEDS ORDERED: INFLUENZA VACCINE (6 MOS+) 60 MCG/0.5 ML SYRINGE IM ONE (19:36)
== END 2019-07-24 20:20 | disposition home or self-care (01) ==
LOC: FBPOP 18:38
PROVIDERS: ATTEND Obstetrics & Gynecology
DX: O30.003 Twin pregnancy, unspecified number of placenta and unspecified number of amniotic sacs, third trimester (principal); Z3A.33 33 weeks gestation of pregnancy
CPT/HCPCS: 59025; 96375; 90686; G0008; J0702

== ENCOUNTER 2019-07-25 21:13 | Outpatient (CLI) | payer OTHER ==
[2019-07-25] MEDS ORDERED: BETAMET ACET-BETAMETH SOD PHOS 6 MG/ML VIAL IM SCH (22:00)
== END 2019-07-25 22:09 | disposition home or self-care (01) ==
LOC: FBPOP 21:13
PROVIDERS: ATTEND Obstetrics & Gynecology
DX: O30.003 Twin pregnancy, unspecified number of placenta and unspecified number of amniotic sacs, third trimester (principal)
CPT/HCPCS: 59025; 96372; J0702

== ENCOUNTER 2019-08-08 08:01 | Outpatient (CLI) | payer OTHER ==
[2019-08-08 10:05] VITALS: BP 109/59; PULSE 72; RESP 16; TEMP 98.3
--- NOTE | 2019-08-09 08:56 | P.MSEPDOC ---
Presenting Problems - Arrival Data Date of Arrival on Unit: 08/08/19 Time of Arrival on Unit: 08:13 Mode of Transport: Ambulatory - Complaint OB-Reason for Admission/Chief Complaint: Other Medical History - Information : 9 Para: 5 Term: 5 : 0 Abortions: Spontaneous or Elective: 3 Number of Living Children: 5 - Gestational Age Gestational Age by VALENTE (wks/days): 35 Weeks and 1 Days Review of Systems - Review of Systems Constitutional: No problems Breast: No problems ENT: No problems Cardiovascular: No problems Respiratory: No problems Gastrointestinal: No problems Genitourinary: No problems Musculoskeletal: No problems Neurological: No problems Skin: No problems Vital Signs - Temperature Temperature: 98.3 F Temperature Source: Oral - Pulse Right Brachial Pulse Rate: 72 Pulse Assessment Method: Automatic Cuff - Respirations Respiratory Rate: 16 Oxygen Delivery Method: Room Air - Blood Pressure Right Arm Blood Pressure: 109/59 Blood Pressure Mean: 75 Blood Pressure Source: Automatic Cuff Medical Screen Scoring (Pre) - Cervical Exam Dilation: 1-3 cm = 1 Membranes: Intact - Uterine Contractions Frequency: > 5 minutes apart = 1 Duration: N/A Intensity: N/A - Maternal Vital Signs Maternal Temperature: N/A Maternal Blood Pressure: N/A Signs of Preeclampsia: N/A Maternal Respirations: N/A - Maternal Trauma Maternal Trauma: N/A - Assessment - Baby A Baseline FHR: 130 Heart Rate - NICHD Category: Category I (Normal) = 0 NST: Reactive Position: N/A - Assessment - Baby B Baseline FHR: 135 Heart Rate - NICHD Category: Category I (Normal) = 0 NST: Reactive Position: N/A - Total Score - Baby A Total Score - Baby A: 2 - Total Score - Baby B Total Score - Baby B: 2 - Total Score - Baby C Total Score - Baby C: 2 - Level of Risk - Baby A Level of Risk - Baby A: Low (0-5) - Level of Risk - Baby B Level of Risk - Baby B: Low (0-5) - Level of Risk - Baby C Level of Risk - Baby C: Low (0-5) Physician Notification (Pre) - Physician Notified Physician Notified Date: 08/08/19 Physician Notified Time: 09:40 - Notification Comment Comment: may discharge to home undelivered with instructions Disposition - Disposition OB Disposition: Discharge to home Discharge Date: 08/08/19 Discharge Time: 10:00 I agree with the RN Medical Screening Exam: Yes Risk & Benefit of care provided described in d/c instruction: Yes Diagnosis: SPOTTING COMPLICATING , THIRD TRIMESTER
== END 2019-08-08 10:00 | disposition home or self-care (01) ==
LOC: FBPOP 08:01
PROVIDERS: ATTEND Obstetrics & Gynecology
DX: O26.853 Spotting complicating pregnancy, third trimester (principal); Z3A.35 35 weeks gestation of pregnancy
CPT/HCPCS: 59025; G0463; 99213